=== PATIENT | female | born 1960 | race Caucasian/White ===

== ENCOUNTER → 2019-12-10 | Outpatient (CLI) | payer OTHER ==
[~2019-12-10] MED LIST: ALPR.5 PO; ASPI81CH PO; BISA10S PR; BUPR150ER PO; CILO50 PO; CLOP75 PO; FURO40 PO; GABA400 PO; HYDACE5 PO; IBUP600 PO; LEVSOD100 PO; METCAR500 PO; Norco 5-325 Ta1 EACH PO; OXYACE5T PO; POTCHL10ER PO; PROM25 PO; QUET25 PO; Roxicodone5 MG PO; SPIR25 PO; SULTRIDS PO; TRAM50 PO; TRAZ50 PO; Ventolin5 MG/1 ML; WARF10 PO; WARF7.5 PO
[2019-12-11 08:21] LABS: Stool Occult Bld Immuno 1 Negative (NEGATIVE)
== END | disposition home or self-care (01) ==
LOC: LAB 18:37 → LAB SHORT 18:37
PROVIDERS: Family Medicine
DX: Z12.11 Encounter for screening for malignant neoplasm of colon (principal)
CPT/HCPCS: G0328

== ENCOUNTER 2021-04-20 01:21 | Emergency (ER) | payer OTHER ==
[~2021-04-20] VITALS: Ht 167.6 cm; Wt 90.7 kg
[2021-04-20] MEDS ORDERED: ZYRTEC10 M2 (02:35)
[2021-04-20] MEDS ORDERED: MEDROL4 M1 (02:36)
[2021-04-20] MEDS ORDERED: EUTHYROX137 MCG (02:36)
[2021-04-20] MEDS ORDERED: VITAMIN D325 MC3 (02:37)
[2021-04-20] MEDS ORDERED: ZOCOR20 MG (02:37)
[2021-04-20] MEDS ORDERED: Aspir 8181 MG (02:37)
[2021-04-20] MEDS ORDERED: OMEP20ER (02:37)
[2021-04-20] MEDS ORDERED: OXYB5 (02:38)
[2021-04-20] MEDS ORDERED: VENL25 (02:39)
[2021-04-20 03:01] LABS: BASOPHILS ABSOLUTE AUTO 0.05 K/mm3 (0.00-0.23); BASOPHILS PERCENT AUTO 1 % (0-2); EOSINOPHILS ABSOLUTE AUTO 0.17 K/mm3 (0.00-0.68); EOSINOPHILS PERCENT AUTO 2 % (0-6); IMMATURE GRAN ABSOLUTE AUTO 0.02 K/mm3 (0.00-0.10); IMMATURE GRAN PERCENT AUTO 0 % (0-1); LYMPHOCYTES ABSOLUTE AUTO 1.34 K/mm3 (0.84-5.20); LYMPHOCYTES PERCENT AUTO 18 % (21-46); MONOCYTES ABSOLUTE AUTO 0.76 K/mm3 (0.16-1.47); MONOCYTES PERCENT AUTO 10 % (4-13); Mean Corpuscular HGB 29.3 pg (26.0-34.0); Mean Corpuscular HGB Conc 31.3 g/dL (31.5-36.5); Mean Corpuscular Volume 94 fL (80-100); Mean Platelet Volume 9.4 fL (9.1-12.4); NEUTROPHILS ABSOLUTE AUTO 5.13 K/mm3 (1.96-9.15); NEUTROPHILS PERCENT AUTO 69 % (41-73); Platelet Count 353 K/mm3 (150-400); RDW Standard Deviation 44.5 fL (35.1-46.3); Red Blood Cell Count 3.41 M/mm3 (3.80-5.20); White Blood Cell Count 7.47 K/mm3 (4.00-11.30)
[2021-04-20 03:19] LABS: International Normalized Ratio 0.93; Prothrombin Time Results 9.8 Sec (9.7-11.5)
[2021-04-20 03:22] LABS: Alanine Aminotransfer (ALT/SGP 24 U/L (12-78); Albumin, Blood 3.6 g/dL (3.4-5.0); Albumin/Globulin Ratio 0.9 (0.8-1.8); Alk Phos 67 U/L (50-136); Anion Gap 4 mmol/L (6-16); Aspartate Aminotrans (AST/SGOT 17 U/L (12-37); Bilirubin, Total 0.4 mg/dL (0.1-1.0); Blood Urea Nitrogen 15 mg/dL (8-24); Bun/Creatinine Ratio 18.3 (12.0-20.0); CO2, Blood 27 mmol/L (21-32); Calcium, Blood 8.7 mg/dL (8.5-10.1); Chloride, Blood 108 mmol/L (98-108); Creatinine, Blood 0.82 mg/dL (0.40-1.00); Glomerular Filtration Rate >60 (60-); Glucose, Blood 92 mg/dL (70-99); Potassium, Blood 3.7 mmol/L (3.5-5.5); Sodium, Blood 139 mmol/L (136-145); Total Protein, Blood 7.6 g/dL (6.4-8.2)
[2021-04-20] MEDS ORDERED: Norco 5-325 Ta1 EACH PO (04:17)
== END 2021-04-20 04:42 | disposition home or self-care (01) ==
LOC: ER 01:21
PROVIDERS: Emergency Medicine
DX: M79.662 Pain in left lower leg (principal); W18.30XA Fall on same level, unspecified, initial encounter; Z79.899 Other long term (current) drug therapy; Z79.82 Long term (current) use of aspirin; E03.9 Hypothyroidism, unspecified; Z87.891 Personal history of nicotine dependence
CPT/HCPCS: 36415; 73610; 73630; 80053; 83605; 85025; 85610; 93971; 99284-25

== ENCOUNTER 2021-04-25 01:25 | Emergency (ER) | payer OTHER ==
[~2021-04-25] VITALS: Ht 167.6 cm; Wt 90.7 kg
[~2021-04-25 01:25] MED LIST changes: +Aspir 8181 MG; +EUTHYROX137 MCG; +MEDROL4 M1; +OMEP20ER; +OXYB5; +VENL25; +VITAMIN D325 MC3; +ZOCOR20 MG; +ZYRTEC10 M2
[2021-04-25] MEDS ORDERED: CLOP75 PO (01:56)
== END 2021-04-25 02:32 | disposition home or self-care (01) ==
LOC: ER 01:25
DX: S46.012A Strain of muscle(s) and tendon(s) of the rotator cuff of left shoulder, initial encounter (principal); E03.9 Hypothyroidism, unspecified; Z79.899 Other long term (current) drug therapy; Z87.891 Personal history of nicotine dependence; Z79.82 Long term (current) use of aspirin; W01.0XXA Fall on same level from slipping, tripping and stumbling without subsequent striking against object, initial encounter
CPT/HCPCS: 73030; 99283-25

== ENCOUNTER 2021-10-12 16:11 | Emergency (ER) | payer OTHER ==
[~2021-10-12] VITALS: Ht 165.1 cm; Wt 90.7 kg
== END 2021-10-12 18:03 | disposition left against medical advice (07) ==
LOC: ER 16:11
DX: M79.89 Other specified soft tissue disorders (principal); M79.662 Pain in left lower leg

== ENCOUNTER 2022-08-19 08:11 | Emergency (ER) | payer OTHER ==
[~2022-08-19] VITALS: Ht 167.6 cm; Wt 95.2 kg
[2022-08-19] MEDS ORDERED: TOPI25 PO (08:22)
[2022-08-19] MEDS ORDERED: IBUP400 PO (10:03)
[2022-08-19 10:26] VITALS: BP 140/78
== END 2022-08-19 10:26 | disposition home or self-care (01) ==
LOC: ER 08:11
DX: S76.311A Strain of muscle, fascia and tendon of the posterior muscle group at thigh level, right thigh, initial encounter (principal); I10 Essential (primary) hypertension; E03.9 Hypothyroidism, unspecified; Z86.718 Personal history of other venous thrombosis and embolism; Z79.899 Other long term (current) drug therapy; Z87.891 Personal history of nicotine dependence; X58.XXXA Exposure to other specified factors, initial encounter
CPT/HCPCS: 93971; A9270; J1885

== ENCOUNTER 2023-07-03 03:11 | Day surgery (SDC) | payer OTHER ==
[~2023-07-03 03:11] MED LIST changes: +IBUP400 PO; +TOPI25 PO
== END 2023-07-03 23:03 | disposition home or self-care (01) ==
LOC: WOUND 03:11
DX: I89.0 Lymphedema, not elsewhere classified (principal); L97.212 Non-pressure chronic ulcer of right calf with fat layer exposed; I73.9 Peripheral vascular disease, unspecified; I87.2 Venous insufficiency (chronic) (peripheral); R22.43 Localized swelling, mass and lump, lower limb, bilateral; I83.009 Varicose veins of unspecified lower extremity with ulcer of unspecified site
CPT/HCPCS: G0463